=== PATIENT | female | born 1965 | race Caucasian/White ===

== ENCOUNTER 2016-11-29 18:54 | Emergency (ER) | payer OTHER ==
[~2016-11-29] VITALS: Ht 177.8 cm; Wt 62.1 kg
--- NOTE | ~2016-11-29 | CT17 ---
[facility] A Service of [facility] & [facility] RADIOLOGY TEXT RESULTS PATIENT: ANDI LISA LOCATION: [facility] : [birth year] UNIT #: [id number] AGE: [address]: Ubaldo Mckeon MD SEX: F ORDER DR: [id number] [facility] [address] [place], [place] [address] [id number] E MR#: [id number] Acc #: [id number] NAME: ANDI LISA : 1965 SEX: F STUDY DATE/TIME: 11/30/2016 00:45 UNIT: [facility] ROOM: STUDY DESCRIPTION: CT Angio Head Attending Physician: Ubaldo Mckeon M.D. Ordering Physician: Ubaldo Mckeon M.D. Primary Care Physician: Primary Care Physician No MEDICAL IMAGING REPORT This report is preliminary unless electronic signature is present EXAM CTA head and neck 11/30 at 0045 hours INDICATION Lightheadedness with headache and dizziness for 1 week. TECHNIQUE Axial images were obtained through the head and neck following IV contrast administration. 3-D reformats were obtained. No comparison CTA. This CT examination was performed with one or more of the following radiation dose reduction techniques: automatic exposure control, adjustment of mA and/or kV according to patient size, and iterative reconstruction. FINDINGS Within the neck, there is no plaque disease. There is no carotid or vertebral dissection. There is no carotid or vertebral stenosis by NASCET criteria. The right vertebral artery is dominant, but both are widely patent. Intracranially, there is no flow-limiting stenosis by NASCET criteria. No vascular malformation is seen. There is no vessel cutoff. There is no aneurysm. Major dural venous sinuses are patent. IMPRESSION Negative CT angiogram of the head and neck. No evidence of carotid or vertebral dissection in the neck. There is no stenosis by NASCET criteria identified on the exam. There is no intracranial aneurysm. Dictated by... Carosn Zepeda Jr., M.D. THIS IS AN ELECTRONICALLY VERIFIED REPORT Carson Zepeda Jr., M.D. at 12/01/2016 12:52 AM EDGARD/negro STS. [facility] A Service of [facility] & [facility] RADIOLOGY TEXT RESULTS PATIENT: ANDI LISA LOCATION: [facility] : 65 UNIT #: [id number] AGE: [address]: Ubaldo Mckeon MD SEX: F ORDER DR: TD: 11/30/2016 08:06 JOB #: [id number] MEDICAL IMAGING REPORT Page 1 of 1 COPY
--- NOTE | ~2016-11-29 | CT71 ---
[facility] A Service of [facility] RADIOLOGY TEXT RESULTS PATIENT: ANDI LISA LOCATION: [facility] : 65 UNIT #: [id number] AGE: [address]: Ubaldo Mckeon MD SEX: F ORDER DR: [id number] [facility] [address] [place], [place] [address] [id number] E MR#: [id number] Acc #: [id number] NAME: ANDI LISA : 1965 SEX: F STUDY DATE/TIME: 11/30/2016 00:37 UNIT: [facility] ROOM: STUDY DESCRIPTION: CT Head Wo Contrast Attending Physician: Ubaldo Mckeon M.D. Ordering Physician: Ubaldo Mckeon M.D. Primary Care Physician: No Primary Care Physician MEDICAL IMAGING REPORT This report is preliminary unless electronic signature is present EXAM Head CT 11/30 at 00:37. INDICATIONS Lightheadedness with headache and neck pain and dizziness for 1 week. COMPARISON 01/11/2016. TECHNIQUE This CT exam was performed with one or more of the following radiation dose reduction techniques: Automatic exposure control, adjustment of mA and/or kV according to patient size, and iterative reconstruction. FINDINGS Axial images were obtained from the base to the vertex without contrast. There is no skull fracture. There is some chronic mucosal thickening in the left frontal sinus as well as in left side ethmoid air cells and in the left sphenoid sinus. Middle ear cavities and mastoid air cells appear clear. Ventricular size and configuration are normal. No acute infarct or hemorrhage. There are no masses. IMPRESSION Mild chronic changes in the paranasal sinuses. Otherwise, negative head CT. Dictated by... Carson Zepeda Jr., M.D. THIS IS AN ELECTRONICALLY VERIFIED REPORT Carson Zepeda Jr., M.D. at 12/01/2016 12:51 AM RLK/gaby [facility] A Service of [facility] RADIOLOGY TEXT RESULTS PATIENT: ANDI LISA LOCATION: [facility] : 65 UNIT #: [id number] AGE: [address]: Ubaldo Mckeon MD SEX: F ORDER DR: TD: 11/30/2016 07:19 JOB #: [id number] MEDICAL IMAGING REPORT Page 1 of 1 COPY
--- NOTE | ~2016-11-29 | CR72 ---
[facility] A Service of [facility] & [facility] RADIOLOGY TEXT RESULTS PATIENT: ANDI LISA LOCATION: [facility] : 65 UNIT #: [id number] AGE: [address]: Ubaldo Mckeon MD SEX: F ORDER DR: [id number] [facility] [address] [place], [place] [address] [id number] E MR#: [id number] Acc #: [id number] NAME: ANDI LISA : 1965 SEX: F STUDY DATE/TIME: 11/30/2016 00:04 UNIT: [facility] ROOM: STUDY DESCRIPTION: CR Chest Single View Portable Attending Physician: Ubaldo Mckeon M.D. Ordering Physician: Ubaldo Mckeon M.D. Primary Care Physician: Primary Care Physician No MEDICAL IMAGING REPORT This report is preliminary unless electronic signature is present EXAM Portable chest 11/30 at 0004 hours. INDICATIONS Chest pain, shortness of air and weakness for 1 month but worsening over the last week. FINDINGS A single AP portable view of the chest shows both lungs to be clear. The heart is normal in size. The mediastinal contour is normal. No significant bone abnormalities are seen. IMPRESSION Normal portable chest. Dictated by... Carson Zepeda Jr., M.D. THIS IS AN ELECTRONICALLY VERIFIED REPORT Carson Zepeda Jr., M.D. at 12/01/2016 12:51 AM EDGARD/gaby TD: 11/30/2016 06:56 JOB #: [id number] MEDICAL IMAGING REPORT Page 1 of 1 COPY
--- NOTE | ~2016-11-29 | EKG ---
PATIENT: ANDI LISA UNIT #: [id number] Ventricular Rate: 55 BPM Atrial Rate: 55 BPM P-R Interval: 116 ms QRS Duration: 86 ms Q-T Interval: 426 ms QTC Calculation(Bezet): 407 ms P [place]: 83 degrees Calculated R [place]: 22 degrees Calculated T [place]: 45 degrees Diagnosis Line: Sinus bradycardia Diagnosis Line: Otherwise normal ECG Diagnosis Line: When compared with ECG of 11-JAN-2016 16:51, Diagnosis Line: No significant change was found Diagnosis Line: Confirmed by BATSHEVA GUTIERREZ MD ([id number]) on Diagnosis Line: 11/29/2016 10:55:05 PM INTERPRETING : JANET
--- NOTE | ~2016-11-29 | CT23 ---
[facility] A Service of [facility] & [facility] RADIOLOGY TEXT RESULTS PATIENT: ANDI LISA LOCATION: [facility] : 65 UNIT #: [id number] AGE: [address]: Ubaldo Mckeon MD SEX: F ORDER DR: [id number] [facility] [address] [place], [place] [address] [id number] E MR#: [id number] Acc #: [id number] NAME: ANDI LISA : 1965 SEX: F STUDY DATE/TIME: 11/30/2016 00:45 UNIT: [facility] ROOM: STUDY DESCRIPTION: CT Angio Neck Attending Physician: Ubaldo Mckeon M.D. Ordering Physician: Ubaldo Mckeon M.D. Primary Care Physician: Primary Care Physician No MEDICAL IMAGING REPORT This report is preliminary unless electronic signature is present EXAM CTA neck FINDINGS Please see CTA of the head for results. Dictated by... Carson Zepeda Jr., M.D. THIS IS AN ELECTRONICALLY VERIFIED REPORT Carson Zepeda Jr., M.D. at 12/01/2016 12:53 AM EDGARD/negro TD: 11/30/2016 08:10 JOB #: [id number] MEDICAL IMAGING REPORT Page 1 of 1 COPY
[2016-11-29 19:48] LABS: BASOPHIL# 0.2 X10e3 (0-0.3); BASOPHIL% 3.1 % (0-2.5); DIFF IND NO; EOSINOPHIL# 0.1 X10e3 (0-0.7); EOSINOPHIL% 2.6 % (0.0-7.0); HEMATOCRIT 37.7 % (35.0-45.0); HEMOGLOBIN 12.5 gm/dL (12.0-16.0); LYMPHOCYTE# 1.8 X10e3 (1.0-3.5); LYMPHOCYTE% 33.6 % (17.0-45.0); MEAN CORPUSCULAR HEMOGLOBIN 29.9 PG (28-34); MEAN CORPUSCULAR HGB CONC 33.2 g/dL (30-36); MEAN PLATELET VOLUME 6.7 FL (6.5-11.5); MONOCYTE# 0.6 X10e3 (0-1.0); MONOCYTE% 10.9 % (3.0-12.0); NEUTROPHIL# 2.6 X10e3 (1.5-7.1); NEUTROPHIL% 49.8 % (40-75); PLATELET COUNT 292 X10e3 (140-420); RED BLOOD COUNT 4.19 X10e (3.90-5.30); RED CELL DISTRIBUTION WIDTH 14.2 % (11.0-15.5); WHITE BLOOD COUNT 5.2 X10e3 (4.0-10.5)
[2016-11-29 20:17] LABS: BILIRUBIN, DIRECT 0.1 mg/dL (0.0-0.2); BILIRUBIN,INDIRECT 0.8 mg/dL (0.0-0.9); BILIRUBIN,TOTAL 0.9 mg/dL (0.2-2.0); CALCIUM SERUM 8.9 mg/dL (8.4-10.2); CREATININE SERUM 0.6 mg/dL (0.6-1.4); GLOM FILT RATE Estimated 105.5 mL/min (>60); POTASSIUM 3.8 mmol/L (3.5-5.1); PROTEIN TOTAL SERUM 6.7 g/dL (6.0-8.3)
[2016-11-29 23:51] LABS: POC - CKMB 1.2 ng/mL (0.0-7.9); POC - TROPONIN <0.05 ng/mL (<=0.05)
[2016-11-29 23:52] LABS: POC - CKMB 1.3 ng/mL (0.0-7.9); POC - TROPONIN <0.05 ng/mL (<=0.05)
[2016-11-30 00:12] LABS: URINE SOURCE CLEAN CATCH
[2016-11-30 00:20] LABS: URINE APPEARANCE CLEAR; URINE BILIRUBIN NEG (NEG); URINE BLOOD NEG (NEG); URINE COLOR YELLOW; URINE GLUCOSE NEG (NEG); URINE KETONE TRACE (NEG); URINE LEUKOCYTE ESTERASE TRACE (NEG); URINE NITRATE POS (NEG); URINE PROTEIN NEG (NEG); URINE SPECIFIC GRAVITY 1.011 (1.003-1.035); URINE UROBILINOGEN 0.2 MG/DL (NEG)
[2016-11-30 00:23] LABS: CULTURE INDICATED? YES; URBCS1 AUWI 0-2 /[HPF] (0-2); URINE BACTERIA AUWI 4+ (NEGATIVE); URINE SQUAMOUS EPITHELIAL CELL FEW /[HPF]
[2016-11-30 00:29] LABS: AMPHETAMINE NEG (NEG); BARBITURATES NEG (NEG); BENZODIAZEPINES NEG (NEG); COCAINE NEG (NEG); MARIJUANA NEG (NEG); OPIATES NEG (NEG); TRICYCLIC ANTIDEPRESSANTS NEG (NEG); U METHADONE NEG (NEG)
== END 2016-11-30 02:51 | disposition home or self-care (01) ==
LOC: CED 18:54
PROVIDERS: Emergency Medicine
DX: N39.0 Urinary tract infection, site not specified (principal); R42 Dizziness and giddiness
CPT/HCPCS: 36415; 70450; 70496; 70498; 71010; 80048; 80076; 80307; 81003; 82553; 84484; 85025; 87086; 87088; 87186; 93005; 96360; 99284; G0480; Q9967